=== PATIENT | female | born 1945 | race Caucasian/White ===

== ENCOUNTER 2018-01-04 13:00 | Emergency (ER) | payer OTHER ==
[~2018-01-04] VITALS: Ht 165.1 cm; Wt 65.8 kg
[2018-01-04 13:15] VITALS: BP 146/71
[2018-01-04] MEDS ORDERED: KETOROLAC TROMETH 60MG/2ML VIAL IM ONE (15:00)
== END 2018-01-04 15:10 | disposition home or self-care (01) ==
LOC: ER 13:05
DX: M25.572 Pain in left ankle and joints of left foot (principal); E07.9 Disorder of thyroid, unspecified; M54.9 Dorsalgia, unspecified; G89.29 Other chronic pain; Z88.2 Allergy status to sulfonamides
CPT/HCPCS: 73600; 96372; 99284; J1885